=== PATIENT | male | born 1950 | race African-American/Black ===

== ENCOUNTER 2017-02-03 07:11 | Outpatient (CLI) | payer MEDICARE, MEDICAID ==
[2017-02-03 10:06] LABS: ALT (SGPT) 13 U/L (0-55); AST (SGOT) 9 U/L (5-34); Albumin 3.8 g/dL (3.4-4.8); Alkaline Phosphatase 115 U/L (40-150); Anion Gap 19 mmol/L (10-20); BUN (Urea Nitrogen) 21 mg/dL (8.4-25.7); Bilirubin, Total 0.5 mg/dL (0.2-1.2); Calc. Creatinine Clearance 0 mL/min (70-130); Calcium 10.3 mg/dL (7.8-10.44); Carbon Dioxide 26 mmol/L (23-31); Cardiac Risk 4.2 (Less than 4.5); Chloride 98 mmol/L (98-107); Cholesterol 190 mg/dL (< 200 Desired); Estimated GFR-MDRD 9; Globulin 3.7 g/dL (2.4-3.5); Glucose 222 mg/dL (80-115); HDL Cholesterol 45 mg/dL (>60 Neg Risk); LDL Cholesterol, Calculated 120 mg/dL; Potassium 4.4 mmol/L (3.5-5.1); Protein, Total 7.5 g/dL (5.8-8.1); Sodium 139 mmol/L (136-145); Triglycerides 127 mg/dL (Less than 150)
== END 2017-02-03 07:12 | disposition home or self-care (01) ==
LOC: MADLABBHPM 07:11
PROVIDERS: ATTEND Family Medicine
DX: E78.5 Hyperlipidemia, unspecified (principal); E11.65 Type 2 diabetes mellitus with hyperglycemia
CPT/HCPCS: 36415; 80053; 80061; 83036; 84443

== ENCOUNTER 2017-06-02 09:18 | Outpatient (CLI) | payer MEDICAID, MEDICARE ==
[2017-06-02 10:15] LABS: ALT (SGPT) 16 U/L (8-55); AST (SGOT) 8 U/L (5-34); Albumin 3.5 g/dL (3.4-4.8); Alkaline Phosphatase 133 U/L (40-150); Anion Gap 18 mmol/L (10-20); BUN (Urea Nitrogen) 16 mg/dL (8.4-25.7); Bilirubin, Total 0.4 mg/dL (0.2-1.2); Calc. Creatinine Clearance 0 mL/min (70-130); Calcium 9.5 mg/dL (7.8-10.44); Carbon Dioxide 27 mmol/L (23-31); Chloride 97 mmol/L (98-107); Estimated GFR-MDRD 10; Globulin 4.2 g/dL (2.4-3.5); Glucose 185 mg/dL (80-115); Potassium 3.4 mmol/L (3.5-5.1); Protein, Total 7.7 g/dL (5.8-8.1); Sodium 139 mmol/L (136-145)
[2017-06-02 10:20] LABS: Hemoglobin A1c 6.8 % (4.0-6.0)
== END 2017-06-02 09:19 | disposition home or self-care (01) ==
LOC: MADLABBHPM 09:18
PROVIDERS: ATTEND Family Medicine
DX: E11.65 Type 2 diabetes mellitus with hyperglycemia (principal)
CPT/HCPCS: 36415; 80053; 83036

== ENCOUNTER 2017-11-22 11:26 | Outpatient (CLI) | payer MEDICARE, OTHER ==
--- NOTE | 2017-11-22 12:40 | RAD ---
TWO VIEWS CHEST: HISTORY: Pneumonia. COMPARISON: 09/13/13. FINDINGS: Atherosclerosis of the aorta. Normal cardiac silhouette. The pulmonary vessels and hilum are normal . Costophrenic angles are clear. Interstitial opacities in the left lower lobe. Adequate aeration of the upper lungs. No pneumothorax. IMPRESSION: Interstitial opacities left lower lobe. Infiltrate cannot be excluded. Continued surveillance to en sure resolution. POS: OFF
== END 2017-11-22 11:27 | disposition home or self-care (01) ==
LOC: MADRAD 11:26
PROVIDERS: ATTEND Family Medicine
DX: J18.9 Pneumonia, unspecified organism (principal); J98.4 Other disorders of lung
CPT/HCPCS: 71046

== ENCOUNTER 2017-12-25 09:57 | Outpatient (CLI) | payer MEDICARE, OTHER ==
--- NOTE | 2017-12-25 11:34 | RAD ---
CHEST 2 VIEWS: Date: 12/25/17 HISTORY: Pneumonia. COMPARISON: Chest radiograph dated 11/22/17. FINDINGS: Interstitial prominence of the lower lobes is similar. No pneumothorax. No signification effusion. No acute osseous abnormality. A vascular stent is present in the right axilla. IMPRESSION: Chronic interstitial prominence in the lung bases, similar to the comparison examination, may represe nt edema versus atypical infectious process. Scarring is also a possibility. POS: [facility]
== END 2017-12-25 09:58 | disposition home or self-care (01) ==
LOC: MADRAD 09:57
PROVIDERS: ATTEND Family Medicine
DX: J18.9 Pneumonia, unspecified organism (principal)
CPT/HCPCS: 71046

== ENCOUNTER 2018-07-02 07:37 | Emergency (ER) | payer MEDICARE, MEDICAID, OTHER ==
[2018-07-02 08:47] LABS: #Eosinphils 0.2 thou/uL (0.0-0.7); #Lymphocytes 1.5 thou/uL (1.20-3.40); #Monocytes 0.5 thou/uL (0.11-0.59); #Neutrophils 5.4 thou/uL (1.40-6.50); %Basophils 0.6 % (0.0-1.0); %Eosinophils 2.9 % (0.0-10.0); %Lymphocytes 19.4 % (21.0-51.0); %Monocytes 6.5 % (0.0-10.0); %Neutrophils 70.5 % (42.0-75.0); Hemoglobin 10.5 g/dL (14.0-18.0); Mean Corpuscular HGB CONC 30.3 g/dL (32.0-36.0); Mean Corpuscular Hemoglobin 23.8 pg (27.0-31.0); Mean Corpuscular Volume 78.6 fL (78.0-98.0); Mean Platelet Volume 7.2 fL (7.4-10.4); Platelet Count 223 thou/uL (130-400); RBC Distribution Width 14.5 % (11.5-14.5); Red Blood Cell (RBC) Count 4.41 mill/uL (4.70-6.10); White Blood Cell (WBC) Count 7.6 thou/uL (4.8-10.8)
[2018-07-02 08:51] LABS: PTT 30.9 SEC (22.9-36.1); Prothrombin Time 13.7 SEC (12.0-14.7)
[2018-07-02 08:57] LABS: ALT (SGPT) 7 U/L (8-55); AST (SGOT) 8 U/L (5-34); Albumin 3.3 g/dL (3.4-4.8); Alkaline Phosphatase 114 U/L (40-150); Anion Gap 11 mmol/L (10-20); BUN (Urea Nitrogen) 19 mg/dL (8.4-25.7); Bilirubin, Total 0.5 mg/dL (0.2-1.2); Calc. Creatinine Clearance 0 mL/min (70-130); Calcium 8.4 mg/dL (7.8-10.44); Carbon Dioxide 27 mmol/L (23-31); Chloride 105 mmol/L (98-107); Estimated GFR-MDRD 11; Globulin 3.6 g/dL (2.4-3.5); Glucose 77 mg/dL (80-115); Potassium 4.1 mmol/L (3.5-5.1); Protein, Total 6.9 g/dL (5.8-8.1); Sodium 139 mmol/L (136-145)
--- NOTE | 2018-07-02 08:58 | RAD ---
PORTABLE CHEST: Date: 07/02/18 HISTORY: Chest pain, left arm pain. COMPARISON: 06/19/18. FINDINGS: Heart size is enlarged. There are atherosclerotic changes of the aorta. No signs of failure or focal infiltrative process. IMPRESSION: Mild cardiomegaly. POS: [facility]
[2018-07-02 09:02] LABS: CKMB 0.8 ng/mL (0-6.6); Troponin I 0.048 ng/mL (< 0.028)
[2018-07-02] MEDS ORDERED: Amlodipine 5 MG TAB ONE (09:42)
[2018-07-02] MEDS ORDERED: cloNIDine 0.1 MG TAB ONE (09:42)
== END 2018-07-02 09:52 | disposition short-term general hospital (02) ==
LOC: MADERS 07:37
DX: M79.642 Pain in left hand (principal); I12.0 Hypertensive chronic kidney disease with stage 5 chronic kidney disease or end stage renal disease; N18.6 End stage renal disease; I48.91 Unspecified atrial fibrillation; E11.22 Type 2 diabetes mellitus with diabetic chronic kidney disease; Z99.2 Dependence on renal dialysis; F17.220 Nicotine dependence, chewing tobacco, uncomplicated; Z79.899 Other long term (current) drug therapy; Z79.82 Long term (current) use of aspirin; Z79.4 Long term (current) use of insulin
CPT/HCPCS: 71045; 80053; 82553; 84484; 85025; 85610; 85730; 93005

== ENCOUNTER 2018-07-06 18:38 | Emergency (ER) | payer MEDICARE, MEDICAID ==
[2018-07-06] MEDS ORDERED: Nitroglycerin 0.4 MG TAB (25 Tab Bottle) ONE (18:54)
[2018-07-06] MEDS ORDERED: cloNIDine 0.1 MG TAB ONE (19:02)
[2018-07-06 19:42] LABS: Anion Gap 12 mmol/L (10-20); BUN (Urea Nitrogen) 21 mg/dL (8.4-25.7); CK (CPK) 75 U/L (30-200); Calc. Creatinine Clearance 0 mL/min (70-130); Calcium 8.3 mg/dL (7.8-10.44); Carbon Dioxide 27 mmol/L (23-31); Chloride 103 mmol/L (98-107); Estimated GFR-MDRD 11; Glucose 274 mg/dL (80-115); Potassium 4.4 mmol/L (3.5-5.1); Sodium 138 mmol/L (136-145)
[2018-07-06 19:45] LABS: #Basophils 0.1 thou/uL (0.0-0.2); #Eosinphils 0.1 thou/uL (0.0-0.7); #Lymphocytes 1.1 thou/uL (1.20-3.40); #Monocytes 0.3 thou/uL (0.11-0.59); #Neutrophils 2.7 thou/uL (1.40-6.50); %Basophils 1.3 % (0.0-1.0); %Eosinophils 3.1 % (0.0-10.0); %Lymphocytes 26.5 % (21.0-51.0); %Monocytes 6.9 % (0.0-10.0); %Neutrophils 62.2 % (42.0-75.0); CKMB 0.9 ng/mL (0-6.6); Hemoglobin 10.4 g/dL (14.0-18.0); Mean Corpuscular HGB CONC 29.6 g/dL (32.0-36.0); Mean Corpuscular Hemoglobin 23.7 pg (27.0-31.0); Mean Platelet Volume 8.5 fL (7.4-10.4); Platelet Count 203 thou/uL (130-400); RBC Distribution Width 15.7 % (11.5-14.5); White Blood Cell (WBC) Count 4.3 thou/uL (4.8-10.8)
[2018-07-06 19:46] LABS: Anisocytosis SLIGHT = 6-15 cells (100X) (0-5/hpf); MDiff Complete? YES; Polychromasia SLIGHT = 2-3 cells (100X) (0-2/hpf)
[2018-07-06] MEDS ORDERED: Morphine 4 MG/ML VIAL ONE (19:53)
[2018-07-06] MEDS ORDERED: Nitroglycerin 2% Ointment 1 INCH/1 GM Packet ONE (19:54)
[2018-07-06] MEDS ORDERED: Ondansetron HCl/PF 4 MG/2 ML Vial ONE (19:54)
[2018-07-06] MEDS ORDERED: Furosemide 40 MG/4 ML VIAL ONE (19:54)
== END 2018-07-06 21:44 | disposition short-term general hospital (02) ==
LOC: MADERS 18:38
DX: I11.0 Hypertensive heart disease with heart failure (principal); I50.9 Heart failure, unspecified; R79.89 Other specified abnormal findings of blood chemistry; I48.91 Unspecified atrial fibrillation; E11.9 Type 2 diabetes mellitus without complications; F17.220 Nicotine dependence, chewing tobacco, uncomplicated; Z79.82 Long term (current) use of aspirin; Z79.899 Other long term (current) drug therapy; Z79.4 Long term (current) use of insulin
CPT/HCPCS: 36415; 80048; 82550; 82553; 83880; 84484; 85025; 93005; 94760; 96374; 96375; J1940; J2270; J2405

== ENCOUNTER 2018-07-07 19:45 | Emergency (ER) | payer MEDICARE, MEDICAID | END 2018-07-07 20:20 | disposition home or self-care (01) | LOC: MADERS 19:45 | DX: K59.00 Constipation, unspecified (principal); I48.91 Unspecified atrial fibrillation; E11.9 Type 2 diabetes mellitus without complications; I10 Essential (primary) hypertension; Z79.82 Long term (current) use of aspirin; Z79.899 Other long term (current) drug therapy; Z79.4 Long term (current) use of insulin | CPT/HCPCS: 99283 ==

== ENCOUNTER 2019-05-19 05:23 | Emergency (ER) | payer MEDICARE, MEDICAID ==
[2019-05-19] MEDS ORDERED: Sodium Chloride 0.9% 1,000 ML ONE (06:18)
[2019-05-19] MEDS ORDERED: Ondansetron PF 4 MG/2 ML Vial ONE (06:18)
[2019-05-19] MEDS ORDERED: Loperamide HCl 2 MG CAP ONE (06:18)
[2019-05-19 06:46] LABS: #Basophils 0.1 thou/uL (0.0-0.2); #Eosinphils 0.6 thou/uL (0.0-0.7); #Lymphocytes 1.1 thou/uL (1.20-3.40); #Monocytes 0.3 thou/uL (0.11-0.59); #Neutrophils 3.9 thou/uL (1.40-6.50); %Basophils 1.4 % (0.0-1.0); %Eosinophils 10.1 % (0.0-10.0); %Lymphocytes 18.3 % (21.0-51.0); %Monocytes 5.4 % (0.0-10.0); %Neutrophils 64.8 % (42.0-75.0); Anisocytosis SLIGHT = 6-15 cells (100X) (0-5/hpf); Hemoglobin 10.3 g/dL (14.0-18.0); Hypochromia MODERATE=16-30 cells (100X) (0-5/hpf); MDiff Complete? YES; Mean Corpuscular HGB CONC 29.6 g/dL (32.0-36.0); Mean Corpuscular Hemoglobin 23.9 pg (27.0-31.0); Mean Corpuscular Volume 80.8 fL (78.0-98.0); Mean Platelet Volume 10.8 fL (7.4-10.4); Platelet Count 154 thou/uL (130-400); Platelet Morphology Comment Appears Adequate; Poikilocytosis SLIGHT = 6-15 cells (100X) (0-5/hpf); RBC Distribution Width 15.2 % (11.5-14.5); RBC Morphology Abnormal; White Blood Cell (WBC) Count 5.9 thou/uL (4.8-10.8)
[2019-05-19 06:52] LABS: ALT (SGPT) 15 U/L (8-55); AST (SGOT) 15 U/L (5-34); Albumin 3.4 g/dL (3.4-4.8); Alkaline Phosphatase 196 U/L (40-150); Anion Gap 20 mmol/L (10-20); BUN (Urea Nitrogen) 73 mg/dL (8.4-25.7); Bilirubin, Total 0.4 mg/dL (0.2-1.2); Calc. Creatinine Clearance 0 mL/min (70-130); Calcium 7.9 mg/dL (7.8-10.44); Carbon Dioxide 23 mmol/L (23-31); Chloride 100 mmol/L (98-107); Estimated GFR-MDRD 7; Globulin 3.4 g/dL (2.4-3.5); Glucose 219 mg/dL (80-115); Lipase 76 U/L (8-78); Protein, Total 6.8 g/dL (5.8-8.1); Sodium 138 mmol/L (136-145)
== END 2019-05-19 07:35 | disposition home or self-care (01) ==
LOC: MADERS 05:23
DX: R11.10 Vomiting, unspecified (principal); R19.7 Diarrhea, unspecified; E78.5 Hyperlipidemia, unspecified; E78.00 Pure hypercholesterolemia, unspecified; I48.91 Unspecified atrial fibrillation; E11.9 Type 2 diabetes mellitus without complications; I10 Essential (primary) hypertension; F17.220 Nicotine dependence, chewing tobacco, uncomplicated; Z79.899 Other long term (current) drug therapy; Z79.82 Long term (current) use of aspirin; Z79.4 Long term (current) use of insulin
CPT/HCPCS: 80053; 83690; 85025; 93005; 96361; 96374; J2405; J7050

== ENCOUNTER 2019-06-10 04:22 | Emergency (ER) | payer MEDICARE, MEDICAID ==
[2019-06-10 05:05] LABS: Lactic Acid 3.1 mmol/L (0.5-2.2)
[2019-06-10 05:08] LABS: #Basophils 0.1 thou/uL (0.0-0.2); #Eosinphils 1.9 thou/uL (0.0-0.7); #Lymphocytes 0.9 thou/uL (1.20-3.40); #Monocytes 0.8 thou/uL (0.11-0.59); #Neutrophils 9.8 thou/uL (1.40-6.50); %Basophils 0.8 % (0.0-1.0); %Eosinophils 13.9 % (0.0-10.0); %Lymphocytes 6.8 % (21.0-51.0); %Neutrophils 72.6 % (42.0-75.0); Anisocytosis SLIGHT = 6-15 cells (100X) (0-5/hpf); Hemoglobin 10.4 g/dL (14.0-18.0); Hypochromia SLIGHT = 6-15 cells (100X) (0-5/hpf); MDiff Complete? YES; Macrocytosis SLIGHT = 6-15 cells (100X) (0-5/hpf); Mean Corpuscular HGB CONC 29.5 g/dL (32.0-36.0); Mean Corpuscular Hemoglobin 24.1 pg (27.0-31.0); Mean Corpuscular Volume 81.5 fL (78.0-98.0); Mean Platelet Volume 7.8 fL (7.4-10.4); Microcytosis SLIGHT = 6-15 cells (100X) (0-5/hpf); Platelet Count 170 thou/uL (130-400); Platelet Morphology Comment Appears Adequate; Poikilocytosis SLIGHT = 6-15 cells (100X) (0-5/hpf); RBC Distribution Width 15.5 % (11.5-14.5); RBC Morphology Abnormal; Red Blood Cell (RBC) Count 4.31 mill/uL (4.70-6.10); White Blood Cell (WBC) Count 13.4 thou/uL (4.8-10.8)
[2019-06-10 05:10] LABS: ALT (SGPT) 12 U/L (8-55); AST (SGOT) 9 U/L (5-34); Albumin 3.4 g/dL (3.4-4.8); Alkaline Phosphatase 193 U/L (40-150); Anion Gap 17 mmol/L (10-20); BUN (Urea Nitrogen) 29 mg/dL (8.4-25.7); Bilirubin, Total 0.4 mg/dL (0.2-1.2); Calc. Creatinine Clearance 0 mL/min (70-130); Calcium 7.9 mg/dL (7.8-10.44); Carbon Dioxide 28 mmol/L (23-31); Chloride 98 mmol/L (98-107); Estimated GFR-MDRD 10; Glucose 250 mg/dL (80-115); Lipase 58 U/L (8-78); Potassium 4.1 mmol/L (3.5-5.1); Protein, Total 6.4 g/dL (5.8-8.1); Sodium 139 mmol/L (136-145)
[2019-06-10] MEDS ORDERED: Sodium Chloride 0.9% 500 ML ONE (05:13)
[2019-06-10] MEDS ORDERED: Morphine 10 MG/ML VIAL ONE (05:52)
[2019-06-10] MEDS ORDERED: Sodium Chloride 0.9% 100 ML BAG ONE (07:38)
[2019-06-10 07:58] LABS: Bilirubin Negative (Negative); Blood, Urine Large (Negative); Glucose, Urine (Dipstick) Negative (Negative); Leukocyte Large (Negative); Nitrite Negative (Negative); Protein, Urine (Dipstick) > or equal to 300 mg/dL (Neg-Trace); Urobilinogen 0.2 mg/dL (Less than 2)
[2019-06-10 08:00] LABS: Clarity Turbid (Clear); Squamous Epithelial 0-3 HPF (0-3); WBC/HPF Greater Than 50 HPF (0-3)
[2019-06-10 08:01] LABS: Bacteria/HPF 3+ HPF (None Seen)
[2019-06-10] MEDS ORDERED: cefTRIAXone\\ROCEPHIN 1 GM VIAL ONE (08:27)
[2019-06-10] MEDS ORDERED: Metoclopramide HCl 10 MG/2 ML VIAL ONE (08:27)
--- NOTE | 2019-06-10 09:46 | CT ---
PRELIMINARY REPORT/[facility]/EMERGENCY AFTER HOURS PROCEDURE: EXAM: CT Abdomen and Pelvis Without Contrast EXAM DATE/TIME: 06/10/2019 5:46 AM CLINICAL HISTORY: 69 years old, male; Abdominal pain; Acute; Patient HX: Rlq pain since 2:00 this morning; Additional i nfo: N/a TECHNIQUE: Imaging protocol: Computed tomography of the abdomen and pelvis without contrast. Radiation optimizat ion: All CT scans at this facility use at least one of these dose optimization techniques: automated exposure control; mA and/or kV adjustment per patient size (includes targeted exams where dose is matched to clinical indication); or iterative reconstruction. COMPARISON: No relevant prior studies available. FINDINGS: Lungs: There is subpleural atelectasis of the dependent portions of the lungs. Liver: There is a simple hepatic cyst. Gallbladder and bile ducts: Normal. No calcified stones. No ductal dilation. Pancreas: The pancreas appears normal. No ductal dilatation. Spleen: The spleen is normal. Adrenals: The adrenal glands are normal. Kidneys and ureters: There are multiple renal hypodensities that cannot be further characterized on the current examination. Stomach and bowel: The stomach is normal. There is pericolonic inflammatory stranding involving the a scending colon suspicious for colitis. Appendix: A normal appendix is identified. Intraperitoneal space: Unremarkable. No free air. No significant fluid collection. Vasculature: The vasculature demonstrates diffuse mild atherosclerotic calcification. Lymph nodes: Unremarkable. No enlarged lymph nodes. Bladder: The bladder is decompressed but otherwise normal. Reproductive: Unremarkable as visualized. Bones/joints: Unremarkable. No acute fracture. Soft tissues: Unremarkable. IMPRESSION: There is pericolonic inflammatory stranding involving the ascending colon suspicious for colitis. Thank you for allowing us to participate in the care of your patient. Dictated and Authenticated by: Dayne Dobson MD 06/10/2019 6:09 AM Central Time ([place] & [place]) FINAL REPORT CT OF THE ABDOMEN AND PELVIS: DATE: 06/10/2019. HISTORY: Right lower quadrant pain. FINDINGS: I agree with the preliminary report. Evaluation of the bowel, viscera, vascular structures, and for lymphadenopathy is limited on this noncontrast-enhanced study. There are mild increased linear densi ties in bilateral lung bases, left greater than right, which could represent infiltrate, volume loss, or scar. Incompletely imaged coronary arterial calcification is present. No free intraperitoneal a ir is seen. Limited assessment of the liver demonstrates a small cyst near the posterior aspect of the dome. The re is a small calcified stone within the gallbladder measuring in the 3 mm range. The spleen, adrena l glands, and pancreas demonstrate no acute findings. Bilateral kidneys are atrophic and there are numerous subcentimeter hypodense lesions noted within trisha th kidneys. Many of these lesions are too small to characterize. Statistically, these lesions likel y represent numerous small cysts. No evidence for bowel obstruction. There is prominent wall thickening and pericolonic fat stranding involving the cecum and ascending co fernandez, suspicious for nonspecific colitis. The appendix appears unremarkable. No extraluminal gas. Review of the vascular structures is quite limited without IV contrast. There is extensive multifoca l atherosclerotic calcification of the abdominal aorta and its branches with atherosclerotic calcific ation near the origin of the DIONE, SMA, and celiac axis. Review of the osseous structures demonstrates fusion at the pubic symphysis. No worrisome lytic or b lastic bone lesion. IMPRESSION: Wall thickening of the cecum and ascending colon, evidence of a nonspecific colitis. This could be i nflammatory/infectious or ischemic in nature. POS: OFF
[2019-06-10 11:23] LABS: Lactic Acid 1.3 mmol/L (0.5-2.2)
== END 2019-06-10 11:15 | disposition short-term general hospital (02) ==
LOC: MADERS 04:22
DX: K52.9 Noninfective gastroenteritis and colitis, unspecified (principal); E87.2 Acidosis; N39.0 Urinary tract infection, site not specified; E78.5 Hyperlipidemia, unspecified; E78.00 Pure hypercholesterolemia, unspecified; I48.91 Unspecified atrial fibrillation; E11.9 Type 2 diabetes mellitus without complications; F17.220 Nicotine dependence, chewing tobacco, uncomplicated; Z79.82 Long term (current) use of aspirin; Z79.899 Other long term (current) drug therapy; Z79.4 Long term (current) use of insulin
CPT/HCPCS: 36415; 36416; 74176; 80053; 81003; 81015; 83605; 83690; 85025; 87086; 96361; 96365; 96375; J0696; J2270; J2765; J3490; J7050

== ENCOUNTER 2019-06-15 13:06 | Emergency (ER) | payer MEDICARE, MEDICAID ==
[2019-06-15] MEDS ORDERED: Ondansetron PF 4 MG/2 ML Vial ONE (13:34)
[2019-06-15] MEDS ORDERED: Pantoprazole 40 MG VIAL ONE (13:34)
[2019-06-15] MEDS ORDERED: Sodium Chloride 0.9% 1,000 ML ONE (13:34)
--- NOTE | 2019-06-15 13:53 | RAD ---
EXAM: XR Abdomen 2 View/1 View Cxr PROVIDED CLINICAL HISTORY: Pain COMPARISON: Chest radiograph 08/09/18 FINDINGS: Cardiac and mediastinal silhouette is unchanged in appearance. Chest radiograph is mislabeled with re spect to side. Vascular calcification is noted. No focal consolidation, pleural fluid or pneumothorax apparent. Supine and upright abdominal radiographs demonstrate numerous prominent gas-filled loops of small bow el. No evidence for pneumoperitoneum. Evaluation for urinary tract calculi is limited by patient body habitus. IMPRESSION: Findings suspicious for small bowel obstruction.
[2019-06-15 14:16] LABS: #Basophils 0.1 thou/uL (0.0-0.2); #Eosinphils 1.7 thou/uL (0.0-0.7); #Lymphocytes 1.7 thou/uL (1.20-3.40); #Monocytes 0.6 thou/uL (0.11-0.59); #Neutrophils 5.5 thou/uL (1.40-6.50); %Basophils 1.3 % (0.0-1.0); %Eosinophils 17.5 % (0.0-10.0); %Lymphocytes 17.8 % (21.0-51.0); %Monocytes 6.3 % (0.0-10.0); %Neutrophils 57.3 % (42.0-75.0); Anisocytosis SLIGHT = 6-15 cells (100X) (0-5/hpf); Hemoglobin 11.6 g/dL (14.0-18.0); Hypochromia SLIGHT = 6-15 cells (100X) (0-5/hpf); MDiff Complete? YES; Mean Corpuscular HGB CONC 29.5 g/dL (32.0-36.0); Mean Corpuscular Hemoglobin 23.7 pg (27.0-31.0); Mean Corpuscular Volume 80.3 fL (78.0-98.0); Mean Platelet Volume 7.9 fL (7.4-10.4); Platelet Count 202 thou/uL (130-400); Platelet Morphology Comment Appears Adequate; RBC Distribution Width 15.6 % (11.5-14.5); Red Blood Cell (RBC) Count 4.89 mill/uL (4.70-6.10); White Blood Cell (WBC) Count 9.5 thou/uL (4.8-10.8)
[2019-06-15 14:26] LABS: ALT (SGPT) 9 U/L (8-55); AST (SGOT) 15 U/L (5-34); Albumin 4.1 g/dL (3.4-4.8); Alkaline Phosphatase 199 U/L (40-150); Anion Gap 24 mmol/L (10-20); BUN (Urea Nitrogen) 38 mg/dL (8.4-25.7); Bilirubin, Total 0.6 mg/dL (0.2-1.2); CK (CPK) 176 U/L (30-200); CRP (Inflammatory) 4.41 mg/dL (= or < 0.5); Calc. Creatinine Clearance 0 mL/min (70-130); Calcium 9.3 mg/dL (7.8-10.44); Carbon Dioxide 24 mmol/L (23-31); Chloride 91 mmol/L (98-107); Estimated GFR-MDRD 7; Globulin 4.3 g/dL (2.4-3.5); Glucose 333 mg/dL (80-115); Lipase 33 U/L (8-78); Potassium 5.3 mmol/L (3.5-5.1); Protein, Total 8.4 g/dL (5.8-8.1); Sodium 134 mmol/L (136-145)
[2019-06-15] MEDS ORDERED: cefTRIAXone\\ROCEPHIN 2 GM VIAL ONE (14:47)
[2019-06-15] MEDS ORDERED: Sodium Chloride 0.9% 100 ML ONE (14:47)
[2019-06-15] MEDS ORDERED: Promethazine HCl 25 MG/ML VIAL ONE (14:47)
--- NOTE | 2019-06-15 14:57 | CT ---
EXAM: CT Abdomen Pelvis WO Con PROVIDED CLINICAL HISTORY: Abdominal pain COMPARISON: 06/10/2019 FINDINGS: The visualized lung bases are free of significant opacity. The solid abdominal organs are suboptimally evaluated in the absence of IV contrast material but demo nstrate a stable unenhanced CT appearance. Interval development of multiple mildly dilated air-filled loops of mid to distal jejunum associated with mesenteric edema. There is decompression of the distal small bowel. There is a somewhat radial orientation of the involved small bowel loops as well as swirling of portions of the mesentery, raisi ng the possibility of internal hernia. Stool is noted within the colon. There is no inflammatory fat stranding, free fluid or free air apparent. Vascular calcifications are noted. The osseous structures demonstrate no concerning lytic or blastic lesions. IMPRESSION: Findings compatible with small bowel obstruction. Closed-loop obstruction is not excluded.
[2019-06-15] MEDS ORDERED: Morphine 4 MG/ML VIAL ONE (14:58)
[2019-06-15 17:45] LABS: Lactic Acid 1.1 mmol/L (0.5-2.2)
== END 2019-06-15 19:06 | disposition short-term general hospital (02) ==
LOC: MADERS 13:06
DX: K56.699 Other intestinal obstruction unspecified as to partial versus complete obstruction (principal); R11.2 Nausea with vomiting, unspecified; I11.0 Hypertensive heart disease with heart failure; E11.22 Type 2 diabetes mellitus with diabetic chronic kidney disease; N18.6 End stage renal disease; I49.9 Cardiac arrhythmia, unspecified; E78.5 Hyperlipidemia, unspecified; E78.00 Pure hypercholesterolemia, unspecified; I48.91 Unspecified atrial fibrillation; Z99.2 Dependence on renal dialysis; F17.220 Nicotine dependence, chewing tobacco, uncomplicated; Z79.82 Long term (current) use of aspirin; Z79.899 Other long term (current) drug therapy; Z79.01 Long term (current) use of anticoagulants
CPT/HCPCS: 36415; 74022; 74176; 80053; 82150; 82550; 83605; 83690; 84484; 85025; 86140; 87040; 93005; 94760; 96361; 96365; 96367; 96375; C9113; J0696; J2270; J2405; J2550; J3490; J7050

== ENCOUNTER 2019-09-13 06:57 | Emergency (ER) | payer MEDICARE, MEDICAID ==
[2019-09-13] MEDS ORDERED: Ondansetron ODT 4 MG TAB ONE (07:19)
[2019-09-13] MEDS ORDERED: Phenergan/Codeine 10-6.25mg/5ml UDCUP ONE (07:36)
--- NOTE | 2019-09-13 07:48 | RAD ---
EXAM: Single view of the chest HISTORY: Cough COMPARISON: 08-25 FINDINGS: Single view of the chest shows a normal sized cardiomediastinal silhouette. There is no cristian dence of consolidation, mass, or pleural effusion. Degenerative changes are seen in the spine. A stent is seen in the right arm. IMPRESSION: No evidence of acute cardiopulmonary disease
== END 2019-09-13 09:00 | disposition home or self-care (01) ==
LOC: MADERS 06:57
DX: J42 Unspecified chronic bronchitis (principal); R11.2 Nausea with vomiting, unspecified; E78.5 Hyperlipidemia, unspecified; E78.00 Pure hypercholesterolemia, unspecified; I49.9 Cardiac arrhythmia, unspecified; I48.91 Unspecified atrial fibrillation; E11.22 Type 2 diabetes mellitus with diabetic chronic kidney disease; I12.0 Hypertensive chronic kidney disease with stage 5 chronic kidney disease or end stage renal disease; N18.6 End stage renal disease; Z99.2 Dependence on renal dialysis; F17.220 Nicotine dependence, chewing tobacco, uncomplicated; Z79.899 Other long term (current) drug therapy; Z79.82 Long term (current) use of aspirin; Z79.01 Long term (current) use of anticoagulants; Z79.4 Long term (current) use of insulin; Z95.5 Presence of coronary angioplasty implant and graft
CPT/HCPCS: 71045; 87804; J7620; Q0162

== ENCOUNTER 2020-05-19 14:14 | Outpatient (CLI) | payer MEDICARE, MEDICAID ==
[2020-05-19 14:39] LABS: PTT 29.7 sec (22.9-36.1); Prothrombin Time 13.4 sec (12.0-14.7)
[2020-05-19 14:49] LABS: ALT (SGPT) 14 U/L (8-55); AST (SGOT) 13 U/L (5-34); Alkaline Phosphatase 293 U/L (40-110); Anion Gap 19 mmol/L (10-20); BUN (Urea Nitrogen) 19 mg/dL (8.4-25.7); Bilirubin, Total 0.5 mg/dL (0.2-1.2); Calc. Creatinine Clearance 0 mL/min (70-130); Calcium 9.6 mg/dL (7.8-10.44); Carbon Dioxide 28 mmol/L (23-31); Chloride 100 mmol/L (98-107); Estimated GFR-MDRD 14; Glucose 129 mg/dL (80-115); Sodium 143 mmol/L (136-145)
[2020-05-19 14:54] LABS: #Basophils 0.1 thou/uL (0.0-0.2); #Lymphocytes 1.4 thou/uL (1.20-3.40); #Monocytes 0.4 thou/uL (0.11-0.59); #Neutrophils 3.1 thou/uL (1.40-6.50); %Basophils 1.4 % (0.0-1.0); %Eosinophils 16.6 % (0.0-10.0); %Lymphocytes 23.9 % (21.0-51.0); %Monocytes 6.3 % (0.0-10.0); %Neutrophils 51.7 % (42.0-75.0); Anisocytosis SLIGHT = 6-15 cells (100X) (0-5/hpf); Hemoglobin 11.9 g/dL (14.0-18.0); Hypochromia SLIGHT = 6-15 cells (100X) (0-5/hpf); MDiff Complete? YES; Mean Corpuscular HGB CONC 28.6 g/dL (32.0-36.0); Mean Corpuscular Volume 80.4 fL (78.0-98.0); Mean Platelet Volume 9.1 fL (7.4-10.4); Platelet Count 200 thou/uL (130-400); Platelet Morphology Comment Appears Adequate; RBC Distribution Width 14.9 % (11.5-14.5); Red Blood Cell (RBC) Count 5.18 mill/uL (4.70-6.10)
--- NOTE | 2020-05-19 15:30 | RAD ---
CHEST 2 VIEWS: Date: 05/19/2020 HISTORY: Bronchitis. COMPARISON: Radiograph dated 11/21/2019. FINDINGS: Heart size mildly enlarged. Pulmonary arteries are mildly dilated. Mild bronchial wall thickening. Right axillary vascular stent. No acute osseous abnormality. IMPRESSION: 1. Mild cardiomegaly. 2. Evidence of mild chronic bronchitis. POS: [facility]
[2020-05-19 21:40] LABS: Hemoglobin A1c 7.2 % (4.0-6.0)
[2020-05-20 14:35] LABS: Bilirubin Negative (Negative); Blood, Urine Large (Negative); Glucose, Urine (Dipstick) Negative (Negative); Ketone, Urine Negative (Negative); Leukocyte Large (Negative); Nitrite Negative (Negative); Protein, Urine (Dipstick) > or equal to 300 mg/dL (Neg-Trace); Specific Gravity, Urine 1.025 (1.005-1.030); Urobilinogen 0.2 mg/dL (Less than 2); pH, Urine 6.5 (5.0-9.0)
[2020-05-20 14:46] LABS: Clarity Cloudy (Clear)
[2020-05-20 14:47] LABS: Bacteria/HPF Rare-Few HPF (None Seen); WBC/HPF Greater Than 50 HPF (0-3)
== END 2020-05-19 14:15 | disposition home or self-care (01) ==
LOC: MADRAD 14:14
PROVIDERS: ATTEND Family Medicine
DX: Z01.818 Encounter for other preprocedural examination (principal); E11.22 Type 2 diabetes mellitus with diabetic chronic kidney disease; J06.9 Acute upper respiratory infection, unspecified; Z79.01 Long term (current) use of anticoagulants; E11.65 Type 2 diabetes mellitus with hyperglycemia; N18.6 End stage renal disease; J42 Unspecified chronic bronchitis; I51.7 Cardiomegaly
CPT/HCPCS: 36415; 71046; 80053; 81001; 83036; 85025; 85610; 85730; 87086; 93005; 93010

== ENCOUNTER 2020-06-15 08:26 | Outpatient (CLI) | payer MEDICARE, MEDICAID ==
[2020-06-15 08:49] LABS: Potassium 4.6 mmol/L (3.5-5.1)
== END 2020-06-15 08:27 | disposition home or self-care (01) ==
LOC: MADLAB 08:26
DX: Z01.812 Encounter for preprocedural laboratory examination (principal)
CPT/HCPCS: 36415; 84132

== ENCOUNTER 2020-06-16 14:35 | Outpatient (CLI) | payer MEDICARE, MEDICAID ==
[2020-06-16 15:11] LABS: Potassium 4.1 mmol/L (3.5-5.1)
== END 2020-06-16 14:36 | disposition home or self-care (01) ==
LOC: MADLAB 14:35
DX: Z01.812 Encounter for preprocedural laboratory examination (principal)
CPT/HCPCS: 36415; 84132

== ENCOUNTER 2020-10-10 00:09 | Emergency (ER) | payer MEDICARE, OTHER ==
[2020-10-10] MEDS ORDERED: Ondansetron ODT 4 MG TAB ONE (00:34)
[2020-10-10] MEDS ORDERED: Labetalol HCl 100 MG/20 ML VIAL ONE (00:34)
[2020-10-10 01:18] LABS: Hemoglobin 10.4 g/dL (14.0-18.0); Mean Corpuscular HGB CONC 29.4 g/dL (32.0-36.0); Mean Corpuscular Hemoglobin 23.6 pg (27.0-31.0); Mean Corpuscular Volume 80.1 fL (78.0-98.0); Mean Platelet Volume 8.7 fL (7.4-10.4); Platelet Count 154 thou/uL (130-400); RBC Distribution Width 14.1 % (11.5-14.5); Red Blood Cell (RBC) Count 4.42 mill/uL (4.70-6.10); White Blood Cell (WBC) Count 9.6 thou/uL (4.8-10.8)
[2020-10-10 01:22] LABS: ALT (SGPT) 14 U/L (8-55); AST (SGOT) 12 U/L (5-34); Albumin 3.8 g/dL (3.4-4.8); Alkaline Phosphatase 147 U/L (40-110); Anion Gap 21 mmol/L (10-20); BUN (Urea Nitrogen) 73 mg/dL (8.4-25.7); Bilirubin, Total 0.6 mg/dL (0.2-1.2); Calc. Creatinine Clearance 0 mL/min (70-130); Calcium 8.9 mg/dL (7.8-10.44); Carbon Dioxide 24 mmol/L (23-31); Chloride 102 mmol/L (98-107); Globulin 3.3 g/dL (2.4-3.5); Glucose 132 mg/dL (83-110); Lipase 58 U/L (8-78); Potassium 5.9 mmol/L (3.5-5.1); Protein, Total 7.1 g/dL (5.8-8.1); Sodium 141 mmol/L (136-145)
[2020-10-10 01:43] LABS: Manual Diff?? YES; Neutrophil 78 % (42-75)
[2020-10-10 01:44] LABS: Band 3 % (5-11); CKMB 1.3 ng/mL (0-6.6); Eosinophils 4 % (0-10); Lymphocytes 10 % (21-51); Monocytes 5 % (0-10); Reactive Lymphocytes 0 % (0-10)
[2020-10-10 01:45] LABS: Anisocytosis MODERATE=16-30 cells (100X) (0-5/hpf); Delete Auto Diff?? YES; Hypochromia MODERATE=16-30 cells (100X) (0-5/hpf); Macrocytosis MODERATE=16-30 cells (100X) (0-5/hpf); Microcytosis MODERATE=15-30 cells (100X) (0-5/hpf); Poikilocytosis MODERATE=16-30 cells (100X) (0-5/hpf)
[2020-10-10 01:46] LABS: Ovalocytes MODERATE= 6-15 cells (100X) (0-1/hpf)
[2020-10-10 01:49] LABS: MDiff Complete? YES
--- NOTE | 2020-10-10 09:36 | RAD ---
EXAM: Chest one view: HISTORY: Cough COMPARISON: 06/21/2020 FINDINGS: Heart size: Cardiomegaly. Lungs: Prominent bilateral vascular congestion with increased markings bilaterally possibly slightly worsening when compared to the prior study. No evidence for confluent lobar pneumonia, significant pleural effusion, acute edema, or pneumothorax , or other significant acute process. IMPRESSION: Bilateral vascular congestion, possibly mildly progressive from prior exam. No confluent lobar pneumo mague. Coexistent minimal atypical pneumonia cannot be excluded.
== END 2020-10-10 02:06 | disposition short-term general hospital (02) ==
LOC: MADERS 00:09
DX: I16.0 Hypertensive urgency (principal); E11.22 Type 2 diabetes mellitus with diabetic chronic kidney disease; I12.0 Hypertensive chronic kidney disease with stage 5 chronic kidney disease or end stage renal disease; N18.6 End stage renal disease; E87.5 Hyperkalemia; E87.70 Fluid overload, unspecified; Z99.2 Dependence on renal dialysis; I48.91 Unspecified atrial fibrillation; E78.5 Hyperlipidemia, unspecified; F17.220 Nicotine dependence, chewing tobacco, uncomplicated; Z79.899 Other long term (current) drug therapy
CPT/HCPCS: 71045; 80053; 82553; 83690; 84484; 85025; 93005; 96374; Q0162

== ENCOUNTER 2021-08-09 01:36 | Emergency (ER) | payer MEDICARE, OTHER ==
[2021-08-09] MEDS ORDERED: Benzonatate 100 MG CAP ONE (02:24)
[2021-08-09] MEDS ORDERED: Lidocaine Viscous Sol 2% 15 ml UD Cup ONE (02:25)
[2021-08-09] MEDS ORDERED: Milk Of Magnesia 30 ML UDCUP ONE (02:30)
[2021-08-09 02:46] LABS: ALT (SGPT) 10 U/L (8-55); AST (SGOT) 10 U/L (5-34); Albumin 3.6 g/dL (3.4-4.8); Alkaline Phosphatase 148 U/L (40-110); Anion Gap 16 mmol/L (10-20); BUN (Urea Nitrogen) 26 mg/dL (8.4-25.7); Bilirubin, Total 0.4 mg/dL (0.2-1.2); Calc. Creatinine Clearance 0 mL/min (70-130); Calcium 9.6 mg/dL (7.8-10.44); Carbon Dioxide 26 mmol/L (23-31); Chloride 99 mmol/L (98-107); Glucose 249 mg/dL (83-110); Potassium 4.8 mmol/L (3.5-5.1); Protein, Total 7.6 g/dL (5.8-8.1); Sodium 136 mmol/L (136-145)
[2021-08-09 02:47] LABS: #Basophils 0.1 thou/uL (0.0-0.2); #Eosinphils 0.5 thou/uL (0.0-0.7); #Monocytes 0.9 thou/uL (0.11-0.59); #Neutrophils 5.8 thou/uL (1.40-6.50); %Basophils 0.7 % (0.0-1.0); %Eosinophils 5.7 % (0.0-10.0); %Lymphocytes 16.6 % (21.0-51.0); %Monocytes 10.3 % (0.0-10.0); %Neutrophils 66.7 % (42.0-75.0); Bite Cells SLIGHT = 2-5 cells (100X) (0-1/hpf); Hemoglobin 10.9 g/dL (14.0-18.0); Hypochromia SLIGHT = 6-15 cells (100X) (0-5/hpf); MDiff Complete? YES; Mean Corpuscular HGB CONC 28.5 g/dL (32.0-36.0); Mean Corpuscular Hemoglobin 24.4 pg (27.0-31.0); Mean Corpuscular Volume 85.8 fL (78.0-98.0); Mean Platelet Volume 7.9 fL (7.4-10.4); Microcytosis SLIGHT = 6-15 cells (100X) (0-5/hpf); Platelet Count 208 thou/uL (130-400); RBC Distribution Width 15.4 % (11.5-14.5); Red Blood Cell (RBC) Count 4.44 mill/uL (4.70-6.10); White Blood Cell (WBC) Count 8.7 thou/uL (4.8-10.8)
[2021-08-09 03:12] LABS: CKMB 0.6 ng/mL (0-6.6)
[2021-08-09] MEDS ORDERED: Aspirin Chewable 81 MG TAB ONE (06:31)
[2021-08-09 07:18] LABS: SARS-CoV-2 NAA Rapid Test Not Detected (NotDetected)
== END 2021-08-09 08:51 | disposition short-term general hospital (02) ==
LOC: MADERS 01:36
DX: R53.1 Weakness (principal); R05.9 Cough, unspecified; R79.89 Other specified abnormal findings of blood chemistry; Z20.822 Contact with and (suspected) exposure to COVID-19; I12.0 Hypertensive chronic kidney disease with stage 5 chronic kidney disease or end stage renal disease; E11.22 Type 2 diabetes mellitus with diabetic chronic kidney disease; N18.6 End stage renal disease; Z99.2 Dependence on renal dialysis; I48.91 Unspecified atrial fibrillation; E78.5 Hyperlipidemia, unspecified; E78.00 Pure hypercholesterolemia, unspecified; F17.220 Nicotine dependence, chewing tobacco, uncomplicated; Z79.899 Other long term (current) drug therapy; Z79.01 Long term (current) use of anticoagulants; Z79.82 Long term (current) use of aspirin
CPT/HCPCS: 71045; 80053; 82553; 83880; 84484; 85025; 93005; U0002